=== PATIENT | male | born 1970 | race Caucasian/White ===

== ENCOUNTER 2023-05-08 09:26 | Emergency (ER) | payer OTHER, SELFPAY ==
[2023-05-08 09:27] VITALS: BP 139/94; PULSE 101; RESP 16; TEMP 36.7; O2SAT 98; BMI 27.8
[2023-05-08 10:00] VITALS: BP 106/64; PULSE 95; O2SAT 100
--- NOTE | 2023-05-08 10:11 | PC.NURSE ---
DR VANESSA AT BEDSIDE
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
[2023-05-08] MEDS: LIDOCAINE 5% TRANSDERMAL PATCH 1 EACH TP (10:23)
[2023-05-08] MEDS: METHOCARBAMOL 500MG TABLET 500 MG PO (10:24)
[2023-05-08] MEDS: ACETAMINOPHEN 500MG TAB 1000 MG PO (10:24)
[2023-05-08 10:30] VITALS: BP 104/67; PULSE 84; O2SAT 94
--- NOTE | 2023-05-08 10:32 | PC.NURSE ---
PT TO CT
[2023-05-08] MEDS: IBUPROFEN 400 MG TABLET PO (10:43)
[2023-05-08 11:00] VITALS: BP 93/55; PULSE 78; O2SAT 94
[2023-05-08 11:53] VITALS: BP 127/85; PULSE 86; RESP 16; TEMP 36.7; O2SAT 96
== END 2023-05-08 11:54 | disposition home or self-care (01) ==
PROVIDERS: Emergency Provider Emergency Medicine
DX: S13.4XXA Sprain of ligaments of cervical spine, initial encounter (principal); V49.40XA Driver injured in collision with unspecified motor vehicles in traffic accident, initial encounter; Y92.410 Unspecified street and highway as the place of occurrence of the external cause
CPT/HCPCS: 72125; 99284